=== PATIENT | female | born 1985 | race Caucasian/White ===

== ENCOUNTER 2016-08-23 16:46 | Emergency (ER) | payer OTHER ==
[~2016-08-23] VITALS: Ht 165.1 cm; Wt 113.4 kg
[~2016-08-23 16:46] MED LIST: BACTRIM DS TAB1 EACH PO; IBUPROFEN 600600 M1 PO; MEDROLDOSEPACK PO; TIZANIDINE HCL4 MG PO
[2016-08-23 16:47] VITALS: BP 141/90
[2016-08-23] MEDS ORDERED: MOBIC7.5 MG PO (17:22)
[2016-08-23] MEDS ORDERED: NORFLEX100 MG PO (17:22)
== END 2016-08-23 17:51 | disposition home or self-care (01) ==
LOC: ER 16:46
DX: M54.42 Lumbago with sciatica, left side (principal)

== ENCOUNTER 2017-01-08 09:47 | Emergency (ER) | payer OTHER | END 2017-01-08 10:37 | disposition home or self-care (01) | LOC: ER 09:47 | DX: M54.42 Lumbago with sciatica, left side (principal); W01.0XXA Fall on same level from slipping, tripping and stumbling without subsequent striking against object, initial encounter; Y93.89 Activity, other specified; Y92.89 Other specified places as the place of occurrence of the external cause; Y99.0 Civilian activity done for income or pay ==